=== PATIENT | female | born 1965 | race Two or more races ===

== ENCOUNTER 2016-12-11 07:09 | Day surgery (SDC) | payer OTHER ==
[2016-12-11] VITALS (9 sets, daily range): BP systolic 119–186; BP diastolic 71–77; PULSE 61–84; RESP 18–22; Ht 165.1 cm; Wt 73.0 kg
[~2016-12-11] VITALS: Ht 165.1 cm; Wt 73.0 kg
[~2016-12-11 07:09] MED LIST: EPHEDrine SULFATE 50 MG/5 ML SYG ONE; LORA1TAB PO; PROPOFOL 200 MG INJ ONE
[2016-12-11] MEDS ORDERED: HYDROCODONE/APAP (7.5/325) TAB PO PRN (10:00)
[2016-12-11] MEDS ORDERED: PROP10TA6 PO (10:03)
[2016-12-11] MEDS ORDERED: CHLO5CAP2 PO (10:03)
--- NOTE | 2016-12-11 10:15 | RADRPT ---
PROCEDURE: XR Chest. CLINICAL INDICATION: Preop, left breast biopsy TECHNIQUE: AP view of the chest was obtained. COMPARISON: None. FINDINGS: The cardiomediastinal silhouette is within normal limits. The lungs are clear. No pleural effusion or pneumothorax is evident. Visualized osseous structures are intact. IMPRESSION: No evidence of active cardiopulmonary disease. RPTAT: VV .Ab Alexandra MD, Date Time Electronically viewed and signed by .Ab Alexandra MD, on 12/11/2016 10:15 .O/
[2016-12-11] MEDS ORDERED: SOD CHLORIDE 0.9% 1,000 ML IV SCH (10:30)
[2016-12-11] MEDS ORDERED: CEFAZOLIN 2 GM/50 ML (PMX) 50 ML IVPB ONE (10:30)
[2016-12-11 10:44] LABS: BASOPHILS % 0.2 % (0.0-2.0); EOSINOPHILS # 0.1 10^3/ul (0.0-0.5); EOSINOPHILS % 2.2 % (0.0-7.0); HEMATOCRIT 35.8 % (37.0-47.0); HEMOGLOBIN 11.4 g/dl (12.0-16.0); LYMPHOCYTES # 1.6 10^3/ul (0.8-2.9); LYMPHOCYTES % 23.7 % (15.0-51.0); MEAN CORPUSCULAR HEMOGLOBIN 26.3 pg (29.0-33.0); MEAN CORPUSCULAR HGB CONC 31.9 g/dl (32.0-37.0); MEAN CORPUSCULAR VOLUME 82.6 fl (82.0-101.0); MEAN PLATELET VOLUME 7.8 fl (7.4-10.4); MONOCYTE # 0.6 10^3/ul (0.3-0.9); MONOCYTES % 8.7 % (0.0-11.0); NEUTROPHIL # 4.3 10^3/ul (1.6-7.5); NEUTROPHILS % 65.2 % (39.0-77.0); PLATELET COUNT 411 10^3/UL (140-440); RED BLOOD COUNT 4.33 10^6/ul (4.20-5.40); RED CELL DISTRIBUTION WIDTH 15.4 % (11.5-14.5); UNCORRECTED WBC 6.6 10^3/ul (4.8-10.8); WHITE BLOOD COUNT 6.6 10^3/ul (4.8-10.8)
[2016-12-11 10:46] LABS: CONDITION 1; LH ANALYZER COMMENTS 1
[2016-12-11 10:49] LABS: INR 0.95; PARTIAL THROMBOPLASTIN TIME 31.9 Sec (25.0-35.0); PROTIME 12.7 Sec (12.2-14.2)
[2016-12-11 11:17] LABS: CALCIUM 9.3 mg/dl (8.4-10.2); CREATININE 0.63 mg/dl (0.44-1.00); POTASSIUM 4.2 mmol/L (3.5-5.1)
[2016-12-11] MEDS ORDERED: LIDOCAINE 2% (SDV) 5 ML INJ ONE (12:12)
[2016-12-11] MEDS ORDERED: MIDAZOLAM 1 MG/ML 2 ML INJ ONE (12:12)
[2016-12-11] MEDS ORDERED: PROPOFOL 20 ML ONE (12:12)
[2016-12-11] MEDS ORDERED: FENTAnyl 50 MCG/ML VIAL ONE (12:36)
[2016-12-11] MEDS ORDERED: DEXAMETHASONE 4 MG/ML 1 ML INJ ONE (12:37)
[2016-12-11] MEDS ORDERED: METOCLOPRAMIDE 10 MG INJ ONE (12:37)
[2016-12-11] MEDS ORDERED: ONDANSETRON 4 MG INJ ONE (12:37)
[2016-12-11] MEDS ORDERED: CEFAZOLIN 1 GM INJ ONE ×2 (12:37)
[2016-12-11] MEDS ORDERED: PROCHLORPERAZINE 10 MG INJ IV PRN (13:00)
[2016-12-11] MEDS ORDERED: FENTAnyl 50 MCG/ML VIAL IV PRN (13:00)
[2016-12-11] MEDS ORDERED: ONDANSETRON 4 MG INJ IV PRN (13:00)
[2016-12-11] MEDS ORDERED: DIPHENHYDRAMINE 50 MG INJ IV PRN (13:00)
[2016-12-11] MEDS ORDERED: OXYCODONE/ACETAMINOPHEN (5/325) TAB PO PRN (13:00)
[2016-12-11] MEDS ORDERED: HYDROmorphONE (0.2 MG/ML) 10ML SYG IV PRN ×3 (13:00)
[2016-12-11] MEDS ORDERED: MEPERIDINE 25 MG INJ IV PRN (13:00)
[2016-12-11] MEDS ORDERED: hydrALAzine 20 MG INJ IV PRN (13:30)
[2016-12-11] MEDS ORDERED: LABETALOL HCL 20MG INJ IV PRN (13:30)
--- NOTE | 2016-12-11 14:27 | OPR ---
DATE OF OPERATION: 12/11/2016 PREOPERATIVE DIAGNOSIS: Left breast lesion. POSTOPERATIVE DIAGNOSIS: Left breast lesion. OPERATION PERFORMED: Left needle-directed excisional breast biopsy. ANESTHESIA: General. ANESTHESIOLOGIST: Flory Shelton MD SURGEON: Mando Brown MD PE TEACHER: Karly Salazar MD INDICATIONS FOR PROCEDURE: The patient is a 51-year-old female underwent surveillance mammography a nd was found to have a suspicious lesion in her left breast. A core needle biopsy revealed atypical hyperplasia and a full excisional biopsy was recommended. Patient consented and was scheduled for surgery. DESCRIPTION OF PROCEDURE: On the morning of surgery, the patient presented to [facility] where she underwent localization of the lesion performed by attending radiologis t, Dr. Joann Medina. Subsequently, she was brought to the operating theater, placed under genera l anesthesia. The left breast was prepped and draped in the usual sterile fashion. A curvilinear i ncision was made in the area of the previously placed localization wire which was between the 12 o'c lock and 2 o'clock location, approximately 2 to 3 cm from the nipple-areolar border. Subcutaneous t issue was dissected with cautery. The skin edges were then elevated with skin hooks. Wide circumfe rential dissection of the tissue associated with the wire took place, taking great care to ensure ad equate margin. Specimen was elevated, transected, oriented, and sent for radiographic confirmation of capture. Capture was confirmed. Specimen was then sent for permanent pathologic analysis. The wound was irrigated. Minimal bleeding was controlled with cautery. The skin was then reapproximate d with 4-0 Vicryl sutures in deep dermal fashion, followed by final skin approximation with 5-0 PDS sutures in subcuticular fashion. Benzoin and Steri-Strips were then applied. Patient tolerated pro cedure well. The estimated blood loss was 20 mL. There were no complications and the patient was t ransported in stable condition to the recovery room where circumferential compression dressing was a pplied. Dictated By: MANDO BROWN MD TL/NTS Conf#: [id number] DID#: [id number] CC: BEATRIS SALAZAR MD;*EndCC*
--- NOTE | 2016-12-11 16:24 | RADRPT ---
Vent Rate: 61 bpm RR Interval: 0 msec VT Interval: 162 msec QRS Duration: 78 msec QT Interval: 420 msec QTC Interval: 422 msec P-R-T Eastern: 41 - 51 - 42 degrees Normal sinus rhythm Normal ECG Electronically Signed By: Saturnino Ventura [id number]
== END 2016-12-11 15:00 | disposition home or self-care (01) ==
LOC: SDS 07:09
PROVIDERS: ATTEND Surgery Surgical Oncology
DX: N60.12 Diffuse cystic mastopathy of left breast (principal); D24.2 Benign neoplasm of left breast
CPT/HCPCS: 19120; 71010; 80048; 85025; 85610; 85730; 88307; 93005; J0690; J1100; J2250; J2405; J2765; J3010; Z7512; Z7610